=== PATIENT | male | born 1970 | race Caucasian/White ===

== ENCOUNTER 2016-12-29 08:37 | Day surgery (SDC) | payer OTHER ==
--- NOTE | 2016-12-23 14:24 | HISTORY AND PHYSICAL E ---
History and Physical NAME: KAMILAH MORTENSEN : 1970 AGE: 46Y ADMITTED: 12/29/2016 ROOM: Referred by [facility] regarding reflux dysphagia. HISTORY: The patient is 46 and presented with dysphagia reflux. He does have history of Alicia fundoplication in 1996. SURGICAL HISTORY: Cervical spine fusion. The patient did have surgery in his lower back. The patient had bilateral hernia repair. SOCIAL HISTORY: . Does not smoke. Drinks rarely. His was diagnosed with colon cancer. HEENT: The patient wears glasses. Respiratory: Sleep apnea, COPD. Cardiac negative. Endocrine negative. GI: Dysphagia, abdominal pain, constipation. Neuropsych: Spine fusion. FAMILY HISTORY: Father is alive. Mom had lung cancer. PHYSICAL EXAMINATION: GENERAL: 46-year-old male. VITAL SIGNS: Blood pressure 120/80, pulse 80, respirations 18, temp 98. HEENT: Normal. NECK: Supple. CARDIOVASCULAR: Normal. LUNGS: Clear. ABDOMEN: Soft. NEUROLOGIC: Negative. CONCLUSION: Dysphagia, reflux, constipation. PLAN: Upper scope. The patient may need to have colonoscope screening in the next few days. He is concerned that his was diagnosed at age 46 with colon cancer. He needs to have colon screening as well. Will try to get him approved for that. For now, he will present for upper endoscopy to be done in the OR with anesthesia standby, because he has claustrophobia and he had dysphagia, sleep apnea, and COPD. MEDICATIONS: The patient takes erythromycin, amoxicillin, Prevpac, Nexium, sucralfate. CONCLUSION: Exacerbation of reflux. PLAN: Upper scope scheduled for 12/29. Today is 12/23. DICTATING PHYSICIAN: VIVI JOHNSON M.D. 1217M 1209 PHY#: [id number] ID: [id number] JOB#: [id number] ACCT: [id number] cc:VIVI JOHNSON M.D. >
--- NOTE | 2016-12-27 12:53 | EKG REPORT ---
SEVERITY:- NORMAL ECG - SINUS RHYTHM : Confirmed by: Dilma Nuno MD 27-Dec-2016 12:51:37
[~2016-12-29 08:37] MED LIST: LIDOCAINE 0.5% INJ-PF (5 MG/ML) 50 ML SDV INJ PRN; RINGERS SOLUTION,LACTATED 1,000 ML IV PRN
[2016-12-29] MEDS ORDERED: PROPOFOL INJ 200 MG/20 ML VIAL IV ONE (09:36)
[2016-12-29] MEDS ORDERED: FAMOTIDINE INJ/PF 20 MG/2 ML SDV IV ONE (09:54)
[2016-12-29] MEDS ORDERED: ALBUTEROL SULFATE 0.083% NEB 2.5 MG/3 ML AMPUL NEB ONE (09:57)
[2016-12-29] MEDS ORDERED: DIPHENHYDRAMINE HCL 50 MG/ML VIAL IV PRN (10:58)
[2016-12-29] MEDS ORDERED: FENTANYL CITRATE INJ/PF 100 MCG/2 ML AMPUL IV PRN ×3 (10:58)
[2016-12-29] MEDS ORDERED: MORPHINE SULFATE 10 MG/ML INJ IV PRN (10:58)
[2016-12-29] MEDS ORDERED: MEPERIDINE HCL/PF INJ 25 MG/1 ML DISP.SYRIN IV PRN (10:58)
[2016-12-29] MEDS ORDERED: PROMETHAZINE HCL INJ 25 MG/1 ML VIAL IV PRN ×3 (10:58→11:56)
[2016-12-29] MEDS ORDERED: LIDOCAINE 2% VISCOUS SOLN 20 ML UDCUP PO PRN (11:53)
[2016-12-29] MEDS ORDERED: ACETAMINOPHEN 325 MG TABLET PO PRN (11:54)
[2016-12-29] MEDS ORDERED: SIMETHICONE 80 MG TAB.CHEW PO PRN (11:54)
[2016-12-29 12:05] LABS: ABSOLUTE EOSINOPHILS # (AUTO) 0.1 10^3/uL (0.0-0.6); ABSOLUTE LYMPHOCYTES (AUTO) 1.2 10^3/uL (0.5-4.7); ABSOLUTE MONOCYTES (AUTO) 0.3 10^3/uL (0.1-1.4); BASOPHILS % (AUTO) 1.2 % (0-2); EOSINOPHILS % (AUTO) 1.6 % (0-6); HEMATOCRIT 40.5 % (37.9-51.0); HEMOGLOBIN 14.5 g/dL (13.5-17.0); LYMPHOCYTES % (AUTO) 33.6 % (13-45); MEAN CORPUSCULAR HEMOGLOBIN 31.3 pg (27.0-33.4); MEAN CORPUSCULAR HGB CONC 35.7 g/dL (32.0-36.0); MEAN CORPUSCULAR VOLUME 88 fl (80-97); MONOCYTES % (AUTO) 8.4 % (3-13); RED BLOOD COUNT 4.62 10^6/uL (4.35-5.55); RED CELL DISTRIBUTION WIDTH 12.7 % (11.5-14.0); SEGMENTED NEUTROPHILS % (AUTO) 55.2 % (42-78); WHITE BLOOD COUNT 3.6 10^3/uL (4.0-10.5)
[2016-12-29 12:25] LABS: ALANINE AMINOTRANSFERASE 30 U/L (21-72); ALBUMIN 3.8 g/dL (3.5-5.0); ALKALINE PHOSPHATASE 41 U/L (38-126); ANION GAP 10 (5-19); ASPARTATE AMINO TRANSFERASE 17 U/L (17-59); BILIRUBIN,DIRECT 0.2 mg/dL (0.0-0.4); BILIRUBIN,TOTAL 0.7 mg/dL (0.2-1.3); BLOOD UREA NITROGEN 13 mg/dL (7-20); CALCIUM 9.2 mg/dL (8.4-10.2); CARBON DIOXIDE 24 mmol/L (22-30); CHLORIDE 107 mmol/L (98-107); CREATININE RESULT 0.82 mg/dL (0.52-1.25); GLUCOSE 98 mg/dL (75-110); POTASSIUM 3.7 mmol/L (3.6-5.0); SODIUM 141.2 mmol/L (137-145); TOTAL PROTEIN 6.1 g/dL (6.3-8.2)
[2016-12-29 13:13] VITALS: BP 115/79
--- NOTE | 2016-12-29 13:59 | DISCHARGE SUMMARY E ---
Discharge Summary NAME: KAMILAH MORTENSEN : 1970 AGE: 46Y ADMITTED: 12/29/2016 DISCHARGED: 12/29/2016 HOSPITAL COURSE: Patient is a 46-year-old male with history of Alicia fundoplication in 1997, presented with exacerbation of reflux. Patient has been treated and is under treatment for H. pylori. Today's upper scope shows no ulcers. He did have mild esophagitis, mild gastritis, mild duodenitis. DISCHARGE PLAN: We will check him for anemia and we will obtain baseline CEA, serum iron, ferritin, and CBC. Consider colonoscopy. Patient is concerned. His was diagnosed with early colon cancer. Patient does have history of cardiac negative, sleep apnea, some dysphagia, and constipation. DICTATING PHYSICIAN: VIVI JOHNSON M.D. 1211M 1143 PHY#: [id number] ID: [id number] JOB#: [id number] ACCT: [id number] cc:[facility] VIVI JOHNSON M.D. >
--- NOTE | 2016-12-29 14:00 | OPERATIVE REPORT E ---
Operative Report NAME: KAMILAH MORTENSEN : 1970 AGE: 46Y DATE OF SURGERY: 12/29/2016 ROOM: PREOPERATIVE DIAGNOSIS: History of Alicia fundoplication, 1997, presented with reflux exacerbation. POSTOPERATIVE DIAGNOSES: 1. Alicia fundoplication looks okay. No evidence of prolapse. No tightness. No stricture. No malignancy. 2. Mild esophagitis. 3. Mild gastritis. 4. Duodenitis. PROCEDURES: 1. Esophagoscopy. 2. Gastroscopy. 3. Duodenoscopy. SURGEON: VIVI JOHNSON M.D. ANESTHESIA: Anesthesia done in the OR with Anesthesia standby. TISSUE REMOVED OR ALTERED: Gastric biopsy for H. pylori. DESCRIPTION OF PROCEDURE: After adequate sedation by batt machine operator, baby scope passed under guided vision. No difficulties. The upper airway, larynx, vocal cords look normal. PROXIMAL ESOPHAGUS: Normal. DISTAL ESOPHAGUS: Shows slight thickening mucosa. No stricture. The picture is consistent with esophagitis with no stricture, no malignancy. GASTROSCOPY: Mild gastritis. Biopsy obtained for H. pylori. DUODENOSCOPY: Duodenal bulb shows no ulcers, mild duodenitis. Descending duodenum with mild duodenitis. Alicia fundoplication was visualized and shows no evidence of relapse or no evidence of stricture. Alicia looks okay. The patient tolerated the procedure well and was discharged to recovery room in stable condition. CONCLUSION: 1. Status post Alicia fundoplication in 1997, with no stricture, no malignancy. 2. Distal esophagitis. 3. Mild gastritis. 4. Mild duodenitis. DISCHARGE PLAN: 1. Continue PPI. 2. Awaiting biopsy results. 3. The patient is concerned about colon lesions. His was just diagnosed with colon cancer. We will go ahead and do lab studies and arrange for colonoscopy. DICTATING PHYSICIAN: VIVI JOHNSON M.D. 1819M 1130 PHY#: [id number] ID: [id number] JOB#: [id number] ACCT: [id number] cc:[facility] VIVI NOLASCO M.D. >
== END 2016-12-29 13:18 | disposition home or self-care (01) ==
LOC: OROUT 08:37
PROVIDERS: ATTEND Specialist
PROC: 0DB68ZX Excision of Stomach, Via Natural or Artificial Opening Endoscopic, Diagnostic (ICD-10-PCS; principal; 2016-12-29 11:00)
DX: K21.0 Gastro-esophageal reflux disease with esophagitis (principal); K29.80 Duodenitis without bleeding; K29.50 Unspecified chronic gastritis without bleeding; B96.81 Helicobacter pylori [H. pylori] as the cause of diseases classified elsewhere; J44.9 Chronic obstructive pulmonary disease, unspecified; G47.30 Sleep apnea, unspecified; Z88.1 Allergy status to other antibiotic agents; Z88.8 Allergy status to other drugs, medicaments and biological substances; Z88.0 Allergy status to penicillin; Z79.51 Long term (current) use of inhaled steroids
CPT/HCPCS: 43239; 93005; 36415; 82378; 82728; 85025; 80053; 88342 ×2; 88305 ×2; 93010; 94640; J2704; S0028; 740

== ENCOUNTER 2017-01-27 09:55 | Day surgery (SDC) | payer OTHER ==
--- NOTE | 2017-01-21 10:06 | HISTORY AND PHYSICAL E ---
History and Physical NAME: KAMILAH MORTENSEN : 1970 AGE: 46Y ADMITTED: 01/27/2017 ROOM: HISTORY: Patient did have recent upper endoscopy showing gastritis. At this time, patient presented regarding colon screening. Patient for colon screening. Patient referred to us by [facility]. SURGERIES: The patient had . END OF DICTATION DICTATING PHYSICIAN: VIVI JOHNSON M.D. 1654M 1350 PHY#: [id number] ID: [id number] JOB#: [id number] ACCT: [id number] cc:VIVI JOHNSON M.D. >
--- NOTE | 2017-01-24 13:30 | HISTORY AND PHYSICAL E ---
History and Physical NAME: KAMILAH MORTENSEN : 1970 AGE: 46Y ADMITTED: 01/27/2017 ROOM: HISTORY OF PRESENT ILLNESS: Patient admitted for colon screening. Patient does have family history of polyps. Referred to us by [facility]. He does have constipation, bloating, abdominal distension. SOCIAL HISTORY: . Does not smoke. PAST SURGICAL HISTORY: 1. In 1996, cervical spine fusion. 2. Patient does have bilateral inguinal hernia repair. REVIEW OF SYSTEMS: CARDIAC: Negative. ENDOCRINE: Negative. GASTROINTESTINAL: Constipation. Family history of colon polyps. ONCOLOGY/HEMATOLOGY: Negative. NEUROLOGIC/PSYCHIATRIC: Patient has cervical spine fusion. FAMILY HISTORY: Father is alive. Mom had CA of the lung. PHYSICAL EXAMINATION: VITAL SIGNS: Blood pressure 120/80, weight 168, pulse 80, respirations 18, temp is 98. HEAD, EYES, EARS, NOSE, THROAT: Normal. FRANSICO: Supple. CARDIOVASCULAR: Normal. LUNGS: Clear. ABDOMEN: Soft. NEUROLOGIC EXAM: Negative. CONCLUSION: 1. Colon screening. 2. Constipation. 3. Family history of colorectal polyps. PLAN: Colonoscopy. He is to be done in the OR with anesthesia standby. MEDICATIONS: 1. Amoxicillin. 2. Sucralfate. 3. Nexium. Patient had recent upper scope on December 29. Underwent endoscopy showing Alicia fundoplication. No ulcers. DICTATING PHYSICIAN: VIVI JOHNSON M.D. 1211M 1338 PHY#: [id number] ID: [id number] JOB#: [id number] ACCT: [id number] cc:[facility] VIVI JOHNSON M.D. >
[~2017-01-27 09:55] MED LIST changes: +GLUCAGON,HUMAN RECOMB 1 MG INJ ONE; +LACTATED RINGERS 1000 ML IV PRN; -LIDOCAINE 0.5% INJ-PF (5 MG/ML) 50 ML SDV INJ PRN; +LIDOCAINE 0.5% INJ-PF (5 MG/ML) 50 ML SDV SUBCUT PRN; -RINGERS SOLUTION,LACTATED 1,000 ML IV PRN
[2017-01-27] MEDS ORDERED: PROPOFOL INJ 200 MG/20 ML VIAL IV ONE (11:39)
[2017-01-27] MEDS ORDERED: LIDOCAINE 2% VISCOUS SOLN 20 ML UDCUP PO PRN (12:48)
[2017-01-27] MEDS ORDERED: ACETAMINOPHEN 325 MG TABLET PO PRN (12:49)
[2017-01-27] MEDS ORDERED: PROMETHAZINE HCL INJ 25 MG/1 ML VIAL IV PRN (12:49)
[2017-01-27] MEDS ORDERED: SIMETHICONE 80 MG TAB.CHEW PO PRN (12:50)
[2017-01-27 12:51] LABS: ABSOLUTE BASOPHILS # (AUTO) 0.1 10^3/uL (0.0-0.2); ABSOLUTE EOSINOPHILS # (AUTO) 0.1 10^3/uL (0.0-0.6); ABSOLUTE LYMPHOCYTES (AUTO) 1.3 10^3/uL (0.5-4.7); ABSOLUTE MONOCYTES (AUTO) 0.3 10^3/uL (0.1-1.4); ABSOLUTE NEUT (AUTO) 2.2 10^3/uL (1.7-8.2); BASOPHILS % (AUTO) 1.3 % (0-2); EOSINOPHILS % (AUTO) 2.2 % (0-6); HEMOGLOBIN 15.5 g/dL (13.5-17.0); HGB HCT DIFFERENCE 3.5; LYMPHOCYTES % (AUTO) 32.5 % (13-45); MEAN CORPUSCULAR HEMOGLOBIN 31.4 pg (27.0-33.4); MEAN CORPUSCULAR VOLUME 87 fl (80-97); MONOCYTES % (AUTO) 8.5 % (3-13); RED BLOOD COUNT 4.92 10^6/uL (4.35-5.55); RED CELL DISTRIBUTION WIDTH 12.6 % (11.5-14.0); SEGMENTED NEUTROPHILS % (AUTO) 55.5 % (42-78); WHITE BLOOD COUNT 3.9 10^3/uL (4.0-10.5)
[2017-01-27 13:14] LABS: IRON 107.1 ug/dL (49-181)
[2017-01-27 17:29] VITALS: BP 128/80
--- NOTE | 2017-01-27 19:22 | DISCHARGE SUMMARY E ---
Discharge Summary NAME: KAMILAH MORTENSEN : 1970 AGE: 46Y ADMITTED: 01/27/2017 DISCHARGED: 01/27/2017 01/27/2017 PROCEDURE: Colonoscopy. HISTORY: The patient presented to us with constipation, abdominal bloating, family history of colorectal polyps. He underwent colonoscopy in the OR today which was successful to the cecum. The patient did have mild diverticulosis in the proximal ascending. I did not see any polyps. His colonoscopy was complete to the cecum. There was some liquidy stool here and there. CONCLUSIONS: Essentially negative colon for any polyps or malignancy. Mild diverticulosis. PLAN: Recommend follow-up colonoscopy in 3 years with better prep. Awaiting baseline lab studies. The patient had recent upper scope where he had Alicia fundoplication. He did have cervical spine fusion. FINAL DIAGNOSIS: Diverticulosis, right colon. DICTATING PHYSICIAN: VIVI JOHNSON M.D. 1209M 1252 PHY#: [id number] ID: [id number] JOB#: [id number] ACCT: [id number] cc:[facility] VIVI JOHNSON M.D. >
--- NOTE | 2017-01-27 19:56 | OPERATIVE REPORT E ---
Operative Report NAME: KAMILAH MORTENSEN : 1970 AGE: 46Y DATE OF SURGERY: 01/27/2017 ROOM: PREOPERATIVE DIAGNOSES: 1. Colon screening. 2. Family history of colorectal polyps. The patient has a strong family history of polyps. 3. Referred to us by regarding abdominal bloating, abdominal distention, constipation, family history of polyps. POSTOPERATIVE DIAGNOSIS: Diverticulosis, mild, proximal ascending colon. PROCEDURE: Colonoscopy to the cecum. SURGEON: VIVI JOHNSON M.D. ANESTHESIA: Done in the OR with anesthesia standby. TISSUE REMOVED OR ALTERED: None. PROCEDURE: Rectal exam normal. Sigmoid and descending colon normal. Transverse colon normal. Ascending colon shows a few diverticulosis, proximal ascending. Cecum normal. Scope withdrawn cecum, ascending, transverse, descending, sigmoid all the way to the rectum. The patient tolerated the procedure well and was discharged to his room in stable condition. CONCLUSIONS: 1. No polyps. 2. Mild diverticulosis, proximal ascending. PLAN: I will obtain baseline CBC and CEA, and we will see the patient in the office in the next few days. DICTATING PHYSICIAN: VIVI JOHNSON M.D. 1209M 1241 PHY#: [id number] ID: [id number] JOB#: [id number] ACCT: [id number] cc:[facility] VIVI NOLASCO M.D. >
== END 2017-01-27 14:05 | disposition home or self-care (01) ==
LOC: OROUT 09:55
PROVIDERS: ATTEND Specialist
PROC: 0DJD8ZZ Inspection of Lower Intestinal Tract, Via Natural or Artificial Opening Endoscopic (ICD-10-PCS; principal; 2017-01-27 12:00)
DX: K57.30 Diverticulosis of large intestine without perforation or abscess without bleeding (principal); K21.9 Gastro-esophageal reflux disease without esophagitis; F17.210 Nicotine dependence, cigarettes, uncomplicated; Z79.899 Other long term (current) drug therapy; Z83.71 Family history of colonic polyps; Z83.79 Family history of other diseases of the digestive system
CPT/HCPCS: 45378; 36415; 82378; 82728; 83540; 85025; J1610; J2704; 810

== ENCOUNTER 2020-10-16 08:14 | Day surgery (SDC) | payer OTHER ==
[~2020-10-16 08:14] MED LIST changes: -GLUCAGON,HUMAN RECOMB 1 MG INJ ONE; -LACTATED RINGERS 1000 ML IV PRN; -LIDOCAINE 0.5% INJ-PF (5 MG/ML) 50 ML SDV SUBCUT PRN; +PROPOFOL INJ 200 MG/20 ML VIAL IV ONE
--- OUTSIDE RECORDS SUMMARY | 2020-10-16 08:31 | XMS REPORT ---
:1970 Author Organization Replaced by [facility] Address [address] [address] Care Team Providers Name Role Phone Unavailable Unavailable Unavailable Allergies, Adverse Reactions, Alerts This patient has no known allergies or adverse reactions. Medications This patient has no known medications. Problems This patient has no known problems. Procedures This patient has no known procedures. Results Test Description Test Time Test Comments Text Results Atomic Results Result Comments SARS-CoV-2 RNA Resp Ql STEFANIE+probe 2020-10-14 00:00:00 Test Item Value Reference Range Comments SARS-CoV-2 RNA Resp Ql STEFANIE+probe Not detected [facility] Case ID: (test code = 98753-5) [id number] SARS-CoV-2, STEFANIE\S\2020-10-13 09:37:00 Test Item Value Reference Range Comments SARS-CoV-2, STEFANIE (test code = 81530-3) Not Detected Not Detect ed SARS-CoV-2 RNA Resp Ql STEFANIE+[id number] 00:00:00 Test Item Value Reference Range Comments SARS-CoV-2 RNA Resp Ql Not detected [facility] Case STEFANIE+probe (test code = ID: [id number]) SARS-CoV-2 RNA Resp Ql STEFANIE+[id number] 00:00:00 Test Item Value Reference Range Comments SARS-CoV-2 RNA Resp Ql Not detected [facility] Case STEFANIE+probe (test code = ID: COVID [id number]) Social History This patient has no known social history. Vital Signs This patient has no known vital signs.
--- NOTE | 2020-10-16 12:37 | Operative Report ---
Operative Report DATE OF SURGERY: 10/16/20 Operative Report: The risks benefits and alternatives of the procedure explained to the patient in detail and informed consent is obtained.A GIF Olympus video scope was inserted into the patient's mouth and hypopharynx ,the esophagus is identified intubated and insufflated ,the scope was then advanced through the esophagus stomach and duodenum, retroflexion maneuver is done the esophagus stomach and first and second portions of the duodenum examined PREOPERATIVE DIAGNOSIS: Epigastric pain. Gastroesophageal reflux disease. History of Allan's esophagus POSTOPERATIVE DIAGNOSIS: Esophageal ulcers. Allan's esophagus status post radiofrequency ablation. Gastritis status post biopsy rule out Helicobacter pylori OPERATION: EGD with radiofrequency ablation. EGD with biopsy SURGEON: YOLA FIELDS ANESTHESIA: LMAC TISSUE REMOVED OR ALTERED: As noted above. COMPLICATIONS: None. ESTIMATED BLOOD LOSS: None. INTRAOPERATIVE FINDINGS: As noted above. PROCEDURE: Patient tolerated the procedure well. No immediate postprocedure complications are noted. Patient is discharged in good condition. Discharge date 10/16/2020. Discharge diet: Regular. Discharge activity: Regular. 2 to 3-week follow-up to discuss findings. Patient is instructed to call the office or proceed to the emergency room should there be any further problems or questions. Wait on the pathology.
[2020-10-16 13:11] VITALS: BP 108/65
== END 2020-10-16 10:10 | disposition home or self-care (01) ==
LOC: OROUT 08:14
PROVIDERS: ATTEND Internal Medicine Gastroenterology
DX: K29.50 Unspecified chronic gastritis without bleeding (principal); K20.90 Esophagitis, unspecified without bleeding; K22.70 Barrett's esophagus without dysplasia; I10 Essential (primary) hypertension; F17.290 Nicotine dependence, other tobacco product, uncomplicated; Z79.899 Other long term (current) drug therapy; Z87.19 Personal history of other diseases of the digestive system; Z98.890 Other specified postprocedural states
CPT/HCPCS: 43270; 43239; 88305 ×2; 00731; J2704; 731